=== PATIENT | female | born 2000 | race Caucasian/White ===

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

== ENCOUNTER 2021-09-27 17:26 | Emergency (ER) | payer MEDICAID, OTHER ==
[~2021-09-27] VITALS: Ht 162.6 cm; Wt 62.0 kg
[2021-09-27 18:00] VITALS: BP 140/79
--- NOTE | 2021-09-27 18:17 | PHYS DOC ---
General Adult EDM: Chief Complaint: SEXUALLY TRANSMITTED DISEASE HPI: HPI: Patient is a 21-year-old female that presents today for an STI check. Patient states her boyfriend went to [facility] in [facility] and he was checked and treated for gonorrhea and chlamydia and she is requesting treatment for those 2 STIs as well. Patient does states she has vaginal discharge, denies vaginal bleeding. Review of Systems: Review of Systems: Constitutional: Denies fever or chills. [] Eyes: Denies change in visual acuity. [] HENT: Denies nasal congestion or sore throat. [] Respiratory: Denies cough or shortness of breath. [] Cardiovascular: Denies chest pain or edema. [] GI: Denies abdominal pain, nausea, vomiting, bloody stools or diarrhea. [] /PHLEBOTOMY MANAGER: Vaginal discharge, STI denies dysuria. [] Musculoskeletal: Denies back pain or joint pain. [] Integument: Denies rash. [] Neurologic: Denies headache, focal weakness or sensory changes. [] Endocrine: Denies polyuria or polydipsia. [] Lymphatic: Denies swollen glands. [] Psychiatric: Denies depression or anxiety. [] Heart Score: C/O Chest Pain: No Risk Factors: Risk Factors: DM, Current or recent (<one month) smoker, HTN, HLP, family history of CAD, obesity. Risk Scores: Score 0 - 3: 2.5% MACE over next 6 weeks - Discharge Home Score 4 - 6: 20.3% MACE over next 6 weeks - Admit for Clinical Observation Score 7 - 10: 72.7% MACE over next 6 weeks - Early Invasive Strategies Allergies: Allergies: Allergies Coded Allergies Type Severity Reaction Last Updated Verified No Known Drug Allergies 09/27/21 No Physical Exam: PE: Constitutional: Well developed, well nourished, no acute distress, non-toxic appearance. [] HENT: Normocephalic, atraumatic, bilateral external ears normal, oropharynx moist, no oral exudates, nose normal. [] Eyes: PERRLA, EOMI, conjunctiva normal, no discharge. [] Neck: Normal range of motion, no tenderness, supple, no stridor. [] Cardiovascular:Heart rate regular rhythm, no murmur [] Lungs & Thorax: Bilateral breath sounds clear to auscultation [] Abdomen: Bowel sounds normal, soft, no tenderness, no masses, no pulsatile masses. [] Skin: Warm, dry, no erythema, no rash. [] Back: No tenderness, no CVA tenderness. [] Extremities: No tenderness, no cyanosis, no clubbing, ROM intact, no edema. [] Neurologic: Alert and oriented X 3, normal motor function, normal sensory function, no focal deficits noted. [] Psychologic: Affect normal, judgement normal, mood normal. [] Current Patient Data: Labs: SPEC #: [id number] ROSSY: 09/27/21 STATUS: COMP REQ #: [id number] RECD: 09/27/[address]: ASHLEY MCCONNELL APRN SOURCE: VAGINAL ENTR: 09/27/[address]: GILBERTO,STAFF SPDESC: NO PCP ORDERED: WET PREP COMMENTS: Has specimen been collected/obtained? Y Procedure Result WET PREP Final YEAST NONE SEEN TRICHOMONAS NONE SEEN CLUE CELLS CLUE CELLS PRESENT ALTERED SUKHDEEP ALTERED SUKHDEEP PRESENT SUGGESTIVE OF BACTERIAL VAGINOSIS Laboratory Tests Test 09/27/21 18:01 09/27/21 18:09 Urine Collection Type Unknown Urine Color (Auto) Light yellow Urine Turbidity Clear Urine pH (Auto) 8.0 Urine Specific [place] 1.015 Urine Protein (Auto) Negative mg/dL Urine Glucose (Auto)(UA) Negative mg/dL Urine Ketones (Auto) Negative mg/dL Urine Blood (Auto) Negative Urine Nitrite Negative Urine Bilirubin (Auto) Negative Urine Urobilinogen (Auto) Normal mg/dL Urine Leukocyte Esterase (Auto) Moderate Urine RBC 0 /HPF Urine WBC 5-10 /HPF Urine Squamous Epithelial Cells Mod /LPF Urine Bacteria Few /HPF Urine Mucus Slight /LPF Bedside Urine HCG, Qualitative Hcg negative Current Medications Medications (Trade) Dose Ordered Sig/Nirali Route PRN Reason Start Time Stop Time Status Last Admin Dose Admin Ceftriaxone Sodium (Rocephin Im) 500 mg 1X ONCE IM 09/27/21 18:30 09/27/21 18:31 DC 09/27/21 18:29 Laboratory Tests Test 09/27/21 18:09 POC Urine HCG, Qualitative Hcg negative (Negative) Vital Signs: Vital Signs Date Time Temp Pulse Resp B/P (MAP) Pulse Ox O2 Delivery O2 Flow Rate FiO2 09/27/21 18:00 98.3 103 16 140/79 (99) 99 Room Air 98.3 EKG: EKG: [] Radiology/Procedures: Radiology/Procedures: [] Course & Med Decision Making: Course & Med Decision Making Pertinent Labs and Imaging studies reviewed. (See chart for details) 1999 I reviewed laboratory results with patient and inform her that her wet prep came back positive for bacterial vaginosis, I will also treat her for GC and chlamydia, in the emergency department she received ceftriaxone 500 mg IM, I will write for Flagyl and doxycycline on outpatient basis patient is to follow- up with her primary care physician for further evaluation and management of her issues. Patient was also advised to abstain from sexual activity until she and her partner have completed her antibiotics. Giovanna Disclaimer: Giovanna Disclaimer: This electronic medical record was generated, in whole or in part, using a voice recognition dictation system. Departure Departure Impression: Primary Impression: Sexually transmitted disease exposure Additional Impression: Bacterial vaginosis Disposition: HOME / SELF CARE / HOMELESS Condition: STABLE Referrals: NO PCP (PCP) Patient Instructions: Bacterial Vaginosis, Sexually Transmitted Disease Additional Instructions: Doxycycline 1 tablet twice daily for 7 days Metronidazole 500 mg 1 tablet twice daily for 7 days Abstain from sexual activity until you have completed all your antibiotics Follow-up with your primary care physician or one of the listed clinics below if you have symptoms past 7 days Return to the emergency department should you develop a fever, you have abdominal pain that localized to the right lower abdomen or you are unable to keep any of your antibiotics down due to nausea and vomiting. [facility] [address] [place] [address] [facility] [address] [place] [address] [facility] [address] [facility] [place] [address] [facility] [address] [place] [address] [facility] [address] [place] [address] [facility] [address] [place] [address] [facility] [address] [place] [address] [facility] [address] [place] [address] [facility] [address] [place] [address] [facility] [address] [place] [address] Scripts Metronidazole (METRONIDAZOLE) 500 Mg Tablet 1 TAB PO BID for 7 Days, #14 TAB 0 Refills Prov: ASHLEY MCCONNELL INSTRUCTIONAL SERVICES SPECIALIST 09/27/21 Doxycycline Hyclate (DOXYCYCLINE HYCLATE) 100 Mg Capsule 1 CAP PO BID, #14 CAP Prov: ASHLEY MCCONNELL INSTRUCTIONAL SERVICES SPECIALIST 09/27/21 ASHLEY MCCONNELL INSTRUCTIONAL SERVICES SPECIALIST September 27, 2021 18:17
[2021-09-27] MEDS ORDERED: cefTRIAXone IM 500 MG VIAL. IM ONE (18:30)
[2021-09-27 18:38] LABS: BACTERIA,URINE FEW /HPF (0-FEW); RBC,URINE 0 /HPF (0-2)
[2021-09-27] MEDS ORDERED: METR-34 PO (20:05)
[2021-09-27] MEDS ORDERED: DOXY100C3 PO (20:05)
== END 2021-09-27 20:29 | disposition home or self-care (01) ==
LOC: ER 17:26
DX: N76.0 Acute vaginitis (principal); B96.89 Other specified bacterial agents as the cause of diseases classified elsewhere; Z20.2 Contact with and (suspected) exposure to infections with a predominantly sexual mode of transmission
CPT/HCPCS: 81001; 81025; 87077; 87086; 96372; 99283; J0696; Q0111